=== PATIENT | female | born 1950 | race Caucasian/White ===

== ENCOUNTER → 2020-03-14 | Outpatient (CLI) | payer MEDICARE | END | disposition home or self-care (01) | LOC: CFH 09:46 | PROVIDERS: ATTEND Licensed Practical Nurse | DX: Z12.31 Encounter for screening mammogram for malignant neoplasm of breast (principal); M85.88 Other specified disorders of bone density and structure, other site; N95.9 Unspecified menopausal and perimenopausal disorder | CPT/HCPCS: 77080; 77067 ==